=== PATIENT | female | born 1960 | race Caucasian/White ===

== ENCOUNTER 2018-03-07 00:38 | Outpatient (CLI) | payer OTHER, SELFPAY ==
--- NOTE | 2018-03-07 09:42 | DI.RAD_ITS ---
SYMPTOM/DIAGNOSIS: RETROSTERNAL PAIN WITH SOLIDS, R07.2 BARIUM SWALLOW AND UPPER GI: Fluoroscopy Time: 01:51 seconds Routine examination was performed. Preliminary chest xray shows heart size and pulmonary vasculature are within normal limits. The lungs are clear. No effusions or pneumothoraces are identified. Mild degenerative changes are seen in the spine. IMPRESSION: No acute pulmonary process. Barium swallow and upper GI was performed according to protocol. There is a normal swallowing mechanism. No gastroesophageal reflux or aspiration was identified during the examination. There is a small hiatal hernia. No ulcers, strictures, intrinsic or extrinsic masses are seen in the esophagus. The stomach and proximal duodenum show no ulcers, strictures, intrinsic or extrinsic masses. Incidental note is made of a small diverticulum arising from the third portion of the duodenum. No evidence of gastric outlet obstruction is seen. IMPRESSION: 1. Small hiatal hernia. No evidence of gastroesophageal reflux. 2. Small duodenal diverticulum.
[2018-03-07] MEDS: Barium Sulfate 60% W/V 355 ML BTL PO (11:25)
== END 2018-03-07 00:58 ==
PROVIDERS: PCP Family Medicine; Visit Provider Family Medicine
DX: R07.2 Precordial pain (principal); K44.9 Diaphragmatic hernia without obstruction or gangrene; K57.10 Diverticulosis of small intestine without perforation or abscess without bleeding
CPT/HCPCS: 74220; 74247; J3490

== ENCOUNTER 2018-10-31 00:47 | Outpatient (CLI) | payer OTHER, SELFPAY ==
--- NOTE | 2018-10-31 12:24 | DI.US_ITS ---
SYMPTOM/DIAGNOSIS: RT LOWER CHEST/UPPER ABD SOFT TISSUE LESION R07.81, PLEURODYNIA SONOGRAPHIC EVALUATION RIGHT LOWER CHEST AND UPPER ABDOMINAL WALL: No cystic or solid masses are seen sonographically. IMPRESSION: Negative examination.
== END 2018-10-31 01:07 ==
PROVIDERS: PCP Family Medicine; Visit Provider Family Medicine
DX: R07.81 Pleurodynia (principal); R22.2 Localized swelling, mass and lump, trunk
CPT/HCPCS: 76705